=== PATIENT | female | born 2000 | race Caucasian/White ===

== ENCOUNTER 2020-12-11 13:24 | Emergency (ER) | payer SELFPAY ==
[~2020-12-11] VITALS: Ht 165.1 cm; Wt 70.7 kg
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
[2020-12-11 15:32] VITALS: BP 90/40
--- NOTE | 2020-12-11 16:14 | NUR ---
PT REC'VD DISCHARGE INSTRUCTIONS AND EDUCATION. PT HAD NO FURTHER QUESTIONS. PT AMBULATED TO DC AREA, STEADY GAIT.
== END 2020-12-11 16:18 | disposition home or self-care (01) ==
LOC: ED 15:15
DX: T40.1X1A Poisoning by heroin, accidental (unintentional), initial encounter (principal); Y92.89 Other specified places as the place of occurrence of the external cause
CPT/HCPCS: 71045; 99283